=== PATIENT | male | born 1980 | race Caucasian/White ===

== ENCOUNTER 2018-08-23 21:11 | Emergency (ER) | payer BC, OTHER ==
[2018-08-23 21:27] VITALS: TEMP 98.7
[2018-08-23] MEDS ORDERED: SODIUM CHLORIDE 0.9% 1,000 ML IV STA (21:49)
[2018-08-23] MEDS ORDERED: PROPARACAINE 0.5% OPHTH DROPS 15 ML BTL BOTH EYES STA (21:50)
--- NOTE | 2018-08-23 22:10 | ED ---
Recheck HPI - General Chief Complaint: Recheck/Abnormal Lab/Rx Stated Complaint: Swollen eye, lost vision Time Seen by Provider: 08/23/18 21:36 Source: patient, RN notes reviewed, old records reviewed Mode of arrival: ambulatory Limitations: no limitations - History of Present Illness Initial Comments: Patient is a 38-year-old male who presents emergency department today with complaints of fatigue. He complains of left eye pain. He reports that his left eye was irritated today before going to work. 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 He was very fatigued. Patient states that he cannot see out of left eye due to drainage. He went to [facility] sent him here for evaluation due to an abnormal EKG. Patient denies any pain with extraocular eye movements. Patient was concerned due to the superficial swelling around the eye, [facility] stated that he could have an infection that could "go to his brain". He does wear glasses.Patient denies any recent fever, chills, shortness of breath, chest pain, back pain, abdominal pain, nausea vomiting, numbness or tingling, dysuria or hematuria, constipation or diarrhea, headaches or visual changes, or any other current symptoms - Related Data Home Medications Medication Instructions Recorded Confirmed No Known Home Medications 12/08/14 08/23/18 Allergies Allergy/AdvReac Type Severity Reaction Status Date / Time metformin AdvReac Severe Diarrhea Verified 08/23/18 22:09 Review of Systems ROS Statement: Those systems with pertinent positive or pertinent negative responses have been documented in the HPI. ROS Other: All systems not noted in ROS Statement are negative. Past Medical History Past Medical History: Diabetes Mellitus Additional Past Medical History / Comment(s): headaches History of Any Multi-Drug Resistant Organisms: MRSA Date of last positivie culture/infection: 2011 MDRO Source:: arm Past Surgical History: No Surgical Hx Reported Past Psychological History: No Psychological Hx Reported Smoking Status: Current every day smoker Past Alcohol Use History: None Reported Past Drug Use History: None Reported General Exam - General Exam Comments Initial Comments: 38-year-old male. Limitations: no limitations General appearance: alert, in no apparent distress Head exam: Present: atraumatic, normocephalic, normal inspection Eye exam: Present: normal appearance, PERRL, EOMI, conjunctival injection (Left eye conjunctival injection.), periorbital swelling ( minimal swelling to left periorbital swelling. ). Absent: scleral icterus ENT exam: Present: normal exam, mucous membranes moist Neck exam: Present: normal inspection Respiratory exam: Present: normal lung sounds bilaterally. Absent: respiratory distress, wheezes, rales, rhonchi, stridor Cardiovascular Exam: Present: regular rate, normal rhythm, normal heart sounds. Absent: systolic murmur, diastolic murmur, rubs, gallop, clicks Extremities exam: Present: normal inspection, full ROM, normal capillary refill. Absent: tenderness, pedal edema, joint swelling, calf tenderness Back exam: Present: normal inspection Neurological exam: Present: alert, oriented X3, CN II-XII intact Psychiatric exam: Present: normal affect, normal mood Course Vital Signs 08/23/18 08/24/18 21:23 00:40 Temperature 98.7 F Pulse Rate 110 H 94 Respiratory 18 16 Rate Blood Pressure 131/86 142/97 O2 Sat by Pulse 98 97 Oximetry Medical Decision Making - Medical Decision Making Patient is a 38-year-old male presents return today with left eye irritation extreme fatigue. He reports he works long hours at his job. He presents emergency room today after being [facility], they sent him in for an abnormal EKG. At this time patient's EKG was reviewed and unremarkable. He has no complaint of chest pain. He states that he just feels "out of it". Patient has no neurological deficits. He does have some minor irritation to the left eye. There is no evidence of retained foreign body on fluorescein eye exam. Pressure and left eye was 23, right eye is 24. Visual acuity is intact. Patient labwork was reviewed and unremarkable. Due to the minimal swelling around the eye and patient's significance concern we did complete a CT of the orbits. This was negative for any acute process. Chest x-ray was reviewed and normal. Patient was reevaluated this time. He states that he is anxious to leave. Patient states that his symptoms are only related to his severe fatigue. Discussed that Patient can be given a work note. I also give the Patient rates myself for the eye due to continuous rubbing from the I discussed using an ALLERGY medication as well. All questions answered return parameters were discussed. - Lab Data Result diagrams: 08/23/18 22:00 08/23/18 22:00 Lab Results 08/23/18 08/23/1818 Range/Units 22:00 22:00 22:00 WBC 11.7 H (3.8-10.6) k/uL RBC 5.51 (4.30-5.90) m/uL Hgb 16.3 (13.0-17.5) gm/dL Hct 48.7 (39.0-53.0) % MCV 88.4 (80.0-100.0) fL MCH 29.7 (25.0-35.0) pg MCHC 33.5 (31.0-37.0) g/dL RDW 13.4 (11.5-15.5) % Plt Count 360 (150-450) k/uL Neutrophils % (Manual) 69 % Lymphocytes % (Manual) 26 % Monocytes % (Manual) 5 % Neutrophils # (Manual) 8.07 H (1.3-7.7) k/uL Lymphocytes # (Manual) 3.04 (1.0-4.8) k/uL Monocytes # (Manual) 0.59 (0-1.0) k/uL Nucleated RBCs 0 (0-0) /100 WBC Manual Slide Review Performed PT (9.0-12.0) sec INR (<1.2) APTT (22.0-30.0) sec Sodium 140 (137-145) mmol/L Potassium 4.3 (3.5-5.1) mmol/L Chloride 105 (98-107) mmol/L Carbon Dioxide 25 (22-30) mmol/L Anion Gap 10 mmol/L BUN 15 (9-20) mg/dL Creatinine 0.70 (0.66-1.25) mg/dL Est GFR (CKD-EPI)AfAm >90 (>60 ml/min/1.73 sqM) Est GFR (CKD-EPI)NonAf >90 (>60 ml/min/1.73 sqM) Glucose 165 H (74-99) mg/dL Calcium 9.5 (8.4-10.2) mg/dL Magnesium 2.1 (1.6-2.3) mg/dL Total Bilirubin 0.4 (0.2-1.3) mg/dL AST 28 (17-59) U/L ALT 30 (21-72) U/L Alkaline Phosphatase 81 (38-126) U/L Total Creatine Kinase 182 H (55-170) U/L CK-MB (CK-2) 1.6 (0.0-2.4) ng/mL CK-MB (CK-2) Rel Index 0.9 Troponin I <0.012 (0.000-0.034) ng/mL Total Protein 7.3 (6.3-8.2) g/dL Albumin 4.3 (3.5-5.0) g/dL 08/23/18 Range/Units 22:00 WBC (3.8-10.6) k/uL RBC (4.30-5.90) m/uL Hgb (13.0-17.5) gm/dL Hct (39.0-53.0) % MCV (80.0-100.0) fL MCH (25.0-35.0) pg MCHC (31.0-37.0) g/dL RDW (11.5-15.5) % Plt Count (150-450) k/uL Neutrophils % (Manual) % Lymphocytes % (Manual) % Monocytes % (Manual) % Neutrophils # (Manual) (1.3-7.7) k/uL Lymphocytes # (Manual) (1.0-4.8) k/uL Monocytes # (Manual) (0-1.0) k/uL Nucleated RBCs (0-0) /100 WBC Manual Slide Review PT 10.3 (9.0-12.0) sec INR 1.0 (<1.2) APTT 25.4 (22.0-30.0) sec Sodium (137-145) mmol/L Potassium (3.5-5.1) mmol/L Chloride (98-107) mmol/L Carbon Dioxide (22-30) mmol/L Anion Gap mmol/L BUN (9-20) mg/dL Creatinine (0.66-1.25) mg/dL Est GFR (CKD-EPI)AfAm (>60 ml/min/1.73 sqM) Est GFR (CKD-EPI)NonAf (>60 ml/min/1.73 sqM) Glucose (74-99) mg/dL Calcium (8.4-10.2) mg/dL Magnesium (1.6-2.3) mg/dL Total Bilirubin (0.2-1.3) mg/dL AST (17-59) U/L ALT (21-72) U/L Alkaline Phosphatase (38-126) U/L Total Creatine Kinase (55-170) U/L CK-MB (CK-2) (0.0-2.4) ng/mL CK-MB (CK-2) Rel Index Troponin I (0.000-0.034) ng/mL Total Protein (6.3-8.2) g/dL Albumin (3.5-5.0) g/dL 08/23/18 22:09 EKG shows sinus tachycardia, otherwise normal EKG. Ventricular rate of 101 bpm. [place] interval 1:30 milliseconds. QRS duration is 86 no seconds. QTQTC 372/ 482 ms. - Radiology Data Radiology results: report reviewed Unremarkable CT orbit. Normal chest x-ray Disposition Clinical Impression: Corneal irritation of left eye, Fatigue Disposition: HOME SELF-CARE Condition: Good Instructions: Blurred Vision (ED), Fatigue (ED) Additional Instructions: Patient advised to follow-up with primary care physician. As the eye ointment every 4 hours within the eye. Return to emergency department if any alarming signs or symptoms occur. Is patient prescribed a controlled substance at d/c from ED?: No Referrals: James Davis MD [Primary Care Provider] - 1-2 days Jose Enrique Valdez MD [STAFF PHYSICIAN] - 1-2 days Time of Disposition: 00:34
--- NOTE | 2018-08-23 22:22 | XR ---
EXAM: XR Chest, 2 Views CLINICAL HISTORY: Reason: Chest Pain TECHNIQUE: Frontal and lateral views of the chest. COMPARISON: No relevant prior studies available. FINDINGS: Lungs: Unremarkable. No consolidation. Pleural space: Unremarkable. No pneumothorax. Heart: Unremarkable. No cardiomegaly. Mediastinum: Unremarkable. Bones/joints: Unremarkable. IMPRESSION: Normal chest x-rays.
[2018-08-23 22:24] LABS: ALT 30 U/L (21-72); AST 28 U/L (17-59); Albumin 4.3 g/dL (3.5-5.0); Alkaline Phosphatase 81 U/L (38-126); Anion Gap 10 mmol/L; Blood Urea Nitrogen 15 mg/dL (9-20); Calcium 9.5 mg/dL (8.4-10.2); Carbon Dioxide 25 mmol/L (22-30); Chloride 105 mmol/L (98-107); Glucose 165 mg/dL (74-99); Magnesium 2.1 mg/dL (1.6-2.3); Potassium 4.3 mmol/L (3.5-5.1); Sodium 140 mmol/L (137-145); Total Bilirubin 0.4 mg/dL (0.2-1.3); Total Protein 7.3 g/dL (6.3-8.2)
[2018-08-23 22:25] LABS: Partial Thromboplastin Time 25.4 sec (22.0-30.0); Prothrombin Time 10.3 sec (9.0-12.0)
[2018-08-23 22:27] LABS: HCT 48.7 % (39.0-53.0); HGB 16.3 gm/dL (13.0-17.5); MCH 29.7 pg (25.0-35.0); MCHC 33.5 g/dL (31.0-37.0); MCV 88.4 fL (80.0-100.0); Mean Platelet Volume 6.3; Platelet Count 360 k/uL (150-450); RBC 5.51 m/uL (4.30-5.90); RDW 13.4 % (11.5-15.5); WBC 11.7 k/uL (3.8-10.6)
[2018-08-23] MEDS ORDERED: ACETAMINOPHEN TAB 500 MG TAB PO STA (22:27)
[2018-08-23 22:50] LABS: Creatine Kinase 182 U/L (55-170)
[2018-08-23 22:53] LABS: Lymphocytes # (M) 3.04 k/uL (1.0-4.8); Monocytes # (M) 0.59 k/uL (0-1.0); Neutrophils # (M) 8.07 k/uL (1.3-7.7); Neutrophils % (M) 69 %; Nucleated Red Blood Cells 0 /100 WBC (0-0); Total Cells Counted 100
[2018-08-23 23:03] LABS: Creatine Kinase MB 1.6 ng/mL (0.0-2.4); Troponin I <0.012 ng/mL (0.000-0.034)
--- NOTE | 2018-08-23 23:34 | CT ---
EXAM: CT Orbits Without Intravenous Contrast CLINICAL HISTORY: Pain TECHNIQUE: Axial computed tomography images of the orbits without intravenous contrast. CTDI is 19 mGy and DLP is 195.1 mGy-cm. This CT exam was performed using one or more of the following dose reduction techniques: automated exposure control, adjustment of the mA and/or kV according to patient size, and/or use of iterative reconstruction technique. COMPARISON: No relevant prior studies available. FINDINGS: Orbits: Unremarkable. No preseptal or post-septal inflammatory changes are noted. Sinuses: Mucosal retention cyst noted in the left maxillary sinus. Bones/joints: No acute fracture. Soft tissues: Unremarkable. IMPRESSION: Unremarkable CT of the orbits.
[2018-08-23] MEDS ORDERED: ERYTHROMYCIN 5 MG/GM OPHTH OINT 3.5 GM TUBE LEFT EYE STA (23:37)
[2018-08-24 00:41] VITALS: BP 142/97; PULSE 94; RESP 16
== END 2018-08-24 00:40 | disposition home or self-care (01) ==
LOC: EC 21:11
DX: H57.89 Other specified disorders of eye and adnexa (principal); R53.83 Other fatigue; F17.200 Nicotine dependence, unspecified, uncomplicated; Z86.14 Personal history of Methicillin resistant Staphylococcus aureus infection; Z88.8 Allergy status to other drugs, medicaments and biological substances
CPT/HCPCS: 36415; 93005; 80053; 82550; 82553; 83735; 84484; 85025; 85610; 85730; 71046; 70481; 99285; 96360; Q9967